=== PATIENT | male | born 1950 | race Caucasian/White ===

== ENCOUNTER → 2017-02-10 | Outpatient (CLI) | payer MEDICARE ==
[2017-02-10 10:13] LABS: MEAN CORPUSCULAR HEMOGLOBIN 32.3 pg (27.0-33.0); MEAN CORPUSCULAR HGB CONC 35.6 g/dl (32.0-36.5); MEAN CORPUSCULAR VOLUME 90.6 fl (80.0-96.0); RED CELL DISTRIBUTION WIDTH 13.1 % (11.5-14.5); WHITE BLOOD COUNT 5.2 K/mm3 (4.0-10.0)
--- NOTE | 2017-02-10 10:30 | REP ---
Chest x-ray: Two views. History: Hypertension. Comparison chest x-ray: August 06, 2015. Findings: The lungs are symmetrically aerated and free of infiltrate. Pleural angles are sharp. Heart size is normal. The patient is status post prior median sternotomy. There are degenerative changes in the thoracic spine and aorta. Right paratracheal soft tissues are unchanged from the comparison study. Impression: Status post prior median sternotomy. No acute disease. Signed by Carlos Ly MD 02/10/2017 12:24 P
[2017-02-10 10:41] LABS: ALBUMIN 3.7 GM/DL (3.2-5.2); ALBUMIN/GLOBULIN RATIO 1.03 (1.00-1.93); ALKALINE PHOSPHATASE 104 U/L (45-117); ALT/SGPT 41 U/L (12-78); ANION GAP 7 MEQ/L (8-16); AST/SGOT 20 U/L (15-37); BILIRUBIN,TOTAL 0.7 MG/DL (0.2-1.0); BLOOD UREA NITROGEN 15 MG/DL (7-18); CALCIUM LEVEL 8.7 MG/DL (8.8-10.2); CARBON DIOXIDE LEVEL 25 MEQ/L (21-32); CHLORIDE LEVEL 106 MEQ/L (98-107); CHOLESTEROL LEVEL 127 MG/DL (<200); GLOMERULAR FILTRATION RATE > 60.0 (>49); GLUCOSE, FASTING 102 MG/DL (80-110); POTASSIUM SERUM 4.3 MEQ/L (3.5-5.1); SODIUM LEVEL 138 MEQ/L (136-145); TOTAL PROTEIN 7.3 GM/DL (6.4-8.2); TRIGLYCERIDES LEVEL 78 MG/DL (<150)
== END ==
LOC: M LAB 09:22
PROVIDERS: ATTEND Family Medicine
DX: I10 Essential (primary) hypertension (principal); R53.83 Other fatigue; N40.0 Benign prostatic hyperplasia without lower urinary tract symptoms; Z79.899 Other long term (current) drug therapy

== ENCOUNTER → 2020-04-22 | Outpatient (CLI) | payer MEDICARE ==
[2020-04-22 09:13] LABS: HEMATOCRIT 49.5 % (42.0-52.0); HEMOGLOBIN 16.6 g/dl (13.5-17.5); MEAN CORPUSCULAR HGB CONC 33.5 g/dl (32.0-36.5); MEAN CORPUSCULAR VOLUME 89.4 fl (80.0-96.0); PLATELET COUNT, AUTOMATED 301 10^3/uL (150-450); RED BLOOD COUNT 5.54 10^6/uL (4.30-6.10); WHITE BLOOD COUNT 6.3 10^3/uL (4.0-10.0)
[2020-04-22 09:48] LABS: ALBUMIN 3.3 GM/DL (3.2-5.2); ALT/SGPT 30 U/L (12-78); BILIRUBIN,TOTAL 0.6 MG/DL (0.2-1.0); BLOOD UREA NITROGEN 14 MG/DL (7-18); CARBON DIOXIDE LEVEL 28 MEQ/L (21-32); CHLORIDE LEVEL 107 MEQ/L (98-107); CHOLESTEROL LEVEL 135 MG/DL (<200); CHOLESTEROL RISK RATIO 3.375 (<5); CREATININE FOR GFR 1.09 MG/DL (0.70-1.30); GLOMERULAR FILTRATION RATE > 60.0 (>42); GLUCOSE, FASTING 110 MG/DL (70-100); HDL CHOLESTEROL 40 MG/DL (>40); LDL CHOLESTEROL 66 MG/DL (<100); NON-HDL-C 95 MG/DL; POTASSIUM SERUM 4.4 MEQ/L (3.5-5.1); SODIUM LEVEL 140 MEQ/L (136-145); TOTAL PROTEIN 7.4 GM/DL (6.4-8.2); TRIGLYCERIDES LEVEL 146 MG/DL (<150)
[2020-04-22 09:56] LABS: HEMOGLOBIN A1c 5.8 %
[2020-04-22 12:39] LABS: TESTOSTERONE 564 NG/DL (241-827)
--- NOTE | 2020-04-26 11:00 | ECGEPIP ---
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
--- NOTE | 2020-04-28 11:24 | REP ---
CHEST X-RAY: 2-VIEWS HISTORY: Hypertension, fatigue, hypothyroidism. COMPARISON: Chest x-ray 02/10/2017. FINDINGS: The lungs are symmetrically aerated and free of infiltrate. The patient is status post prior median sternotomy with multiple mediastinal clips. The heart is not felt to be enlarged. Cardiothoracic ratio is 42.8%. The lungs are somewhat hyperinflated. There are degenerative changes in the thoracic spine and in the thoracic aorta as before. There is linear fibrosis in the left perihilar region unchanged. No new infiltrate is seen. Clothing or necklace artifact is seen across the soft tissues of the neck bilaterally. IMPRESSION: Prior median sternotomy. Hyperinflation. Otherwise no acute disease. MTDD
== END ==
LOC: M LAB 08:22
PROVIDERS: ATTEND Family Medicine
DX: I10 Essential (primary) hypertension (principal); R53.83 Other fatigue; E03.9 Hypothyroidism, unspecified; J84.10 Pulmonary fibrosis, unspecified

== ENCOUNTER → 2020-09-30 | Outpatient (CLI) | payer MEDICARE ==
[2020-09-30 10:32] LABS: HEMATOCRIT 48.3 % (42.0-52.0); HEMOGLOBIN 15.8 g/dl (13.5-17.5); MEAN CORPUSCULAR HEMOGLOBIN 30.2 pg (27.0-33.0); MEAN CORPUSCULAR HGB CONC 32.7 g/dl (32.0-36.5); MEAN CORPUSCULAR VOLUME 92.4 fl (80.0-96.0); PLATELET COUNT, AUTOMATED 301 10^3/uL (150-450); RED BLOOD COUNT 5.23 10^6/uL (4.30-6.10); WHITE BLOOD COUNT 6.1 10^3/uL (4.0-10.0)
[2020-09-30 11:56] LABS: ALBUMIN 3.5 GM/DL (3.2-5.2); BILIRUBIN,TOTAL 0.6 MG/DL (0.2-1.0); CALCIUM LEVEL 9.3 MG/DL (8.8-10.2); CHOLESTEROL RISK RATIO 3.333 (<5); CREATININE FOR GFR 1.26 MG/DL (0.70-1.30); GLOMERULAR FILTRATION RATE 59.9 (>42); POTASSIUM SERUM 4.2 MEQ/L (3.5-5.1); PROSTATIC SPECIFIC AG MONITOR 4.59 NG/ML (< 4.00); THYROID STIMULATING HORMONE 2.61 uIU/ML (0.358-3.740); TOTAL PROTEIN 7.5 GM/DL (6.4-8.2)
== END ==
LOC: M LAB 09:15
PROVIDERS: ATTEND Family Medicine
DX: I10 Essential (primary) hypertension (principal); R53.83 Other fatigue; E03.9 Hypothyroidism, unspecified

== ENCOUNTER → 2021-06-06 | Outpatient (CLI) | payer MEDICARE ==
[2021-06-06 12:17] LABS: HEMOGLOBIN 15.8 g/dl (13.5-17.5); MEAN CORPUSCULAR HGB CONC 33.6 g/dl (32.0-36.5); MEAN CORPUSCULAR VOLUME 92.2 fl (80.0-96.0); PLATELET COUNT, AUTOMATED 300 10^3/uL (150-450)
[2021-06-06 12:35] LABS: HEMOGLOBIN A1c 5.7 %
[2021-06-06 12:52] LABS: ALBUMIN 3.2 GM/DL (3.2-5.2); ALT/SGPT 27 U/L (12-78); BILIRUBIN,TOTAL 0.7 MG/DL (0.2-1.0); BLOOD UREA NITROGEN 12 MG/DL (7-18); CALCIUM LEVEL 8.8 MG/DL (8.8-10.2); CARBON DIOXIDE LEVEL 28 MEQ/L (21-32); CHLORIDE LEVEL 103 MEQ/L (98-107); CHOLESTEROL LEVEL 136 MG/DL (<200); CHOLESTEROL RISK RATIO 3.162 (<5); CREATININE FOR GFR 1.11 MG/DL (0.70-1.30); GLOMERULAR FILTRATION RATE > 60.0 (>42); GLUCOSE, FASTING 105 MG/DL (70-100); HDL CHOLESTEROL 43 MG/DL (>40); LDL CHOLESTEROL 62 MG/DL (<100); NON-HDL-C 93 MG/DL; POTASSIUM SERUM 4.8 MEQ/L (3.5-5.1); PROSTATIC SPECIFIC AG MONITOR 5.96 NG/ML (< 4.00); SODIUM LEVEL 136 MEQ/L (136-145); TOTAL PROTEIN 7.4 GM/DL (6.4-8.2); TRIGLYCERIDES LEVEL 155 MG/DL (<150)
[2021-06-07 10:24] LABS: TESTOSTERONE 577 NG/DL (241-827)
== END ==
LOC: M LAB 11:49
PROVIDERS: ATTEND Family Medicine
DX: I10 Essential (primary) hypertension (principal); R53.83 Other fatigue; R97.21 Rising PSA following treatment for malignant neoplasm of prostate

== ENCOUNTER → 2021-09-07 | Outpatient (CLI) | payer MEDICARE | LOC: M RAD 15:10 | PROVIDERS: ATTEND Family Medicine | DX: R05.9 Cough, unspecified (principal) ==

== ENCOUNTER → 2021-09-24 | Outpatient (CLI) | payer MEDICARE | LOC: M RAD 14:06 | PROVIDERS: ATTEND Family Medicine | DX: J18.9 Pneumonia, unspecified organism (principal) ==

== ENCOUNTER → 2021-12-26 | Outpatient (CLI) | payer MEDICARE ==
[2021-12-26 14:48] LABS: HEMATOCRIT 45.2 % (42.0-52.0); HEMOGLOBIN 15.4 g/dl (13.5-17.5); MEAN CORPUSCULAR HEMOGLOBIN 31.6 pg (27.0-33.0); MEAN CORPUSCULAR HGB CONC 34.1 g/dl (32.0-36.5); MEAN CORPUSCULAR VOLUME 92.6 fl (80.0-96.0); PLATELET COUNT, AUTOMATED 280 10^3/uL (150-450); RED BLOOD COUNT 4.88 10^6/uL (4.30-6.10); WHITE BLOOD COUNT 5.4 10^3/uL (4.0-10.0)
[2021-12-26 15:05] LABS: HEMOGLOBIN A1c 5.9 %
[2021-12-26 15:23] LABS: ALBUMIN 3.2 GM/DL (3.2-5.2); ALT/SGPT 26 U/L (12-78); BILIRUBIN,TOTAL 0.7 MG/DL (0.2-1.0); BLOOD UREA NITROGEN 14 MG/DL (7-18); CALCIUM LEVEL 9.4 MG/DL (8.8-10.2); CARBON DIOXIDE LEVEL 26 MEQ/L (21-32); CHLORIDE LEVEL 106 MEQ/L (98-107); CHOLESTEROL LEVEL 144 MG/DL (<200); CHOLESTEROL RISK RATIO 2.938 (<5); CREATININE FOR GFR 1.17 MG/DL (0.70-1.30); GLOMERULAR FILTRATION RATE > 60.0 (>42); GLUCOSE, FASTING 111 MG/DL (70-100); HDL CHOLESTEROL 49 MG/DL (>40); LDL CHOLESTEROL 68 MG/DL (<100); NON-HDL-C 95 MG/DL; POTASSIUM SERUM 4.6 MEQ/L (3.5-5.1); PROSTATIC SPECIFIC AG MONITOR 6.84 NG/ML (< 4.00); SODIUM LEVEL 140 MEQ/L (136-145); TOTAL PROTEIN 7.5 GM/DL (6.4-8.2); TRIGLYCERIDES LEVEL 136 MG/DL (<150)
[2021-12-27 11:12] LABS: TESTOSTERONE 557 NG/DL (241-827)
== END ==
LOC: M LAB 14:17
PROVIDERS: ATTEND Family Medicine
DX: I10 Essential (primary) hypertension (principal); R97.20 Elevated prostate specific antigen [PSA]

== ENCOUNTER → 2022-02-01 | Outpatient (REF) | payer MEDICARE | LOC: M SMT 12:58 | PROVIDERS: ATTEND Urology | DX: C61 Malignant neoplasm of prostate (principal) ==

== ENCOUNTER → 2022-02-23 | Outpatient (CLI) | payer MEDICARE ==
[2022-02-23 12:59] LABS: BLOOD UREA NITROGEN 12 MG/DL (7-18); CALCIUM LEVEL 9.5 MG/DL (8.8-10.2); CARBON DIOXIDE LEVEL 29 MEQ/L (21-32); CHLORIDE LEVEL 100 MEQ/L (98-107); CREATININE FOR GFR 1.19 MG/DL (0.70-1.30); GLOMERULAR FILTRATION RATE > 60.0 (>42); GLUCOSE, FASTING 118 MG/DL (70-100); POTASSIUM SERUM 3.8 MEQ/L (3.5-5.1); SODIUM LEVEL 136 MEQ/L (136-145)
== END ==
LOC: M LAB 11:08
PROVIDERS: ATTEND Urology
DX: C61 Malignant neoplasm of prostate (principal)

== ENCOUNTER → 2022-03-22 | Outpatient (CLI) | payer MEDICARE ==
[~2022-03-22] MED LIST: AMLO1TAB24 PO; ASPI81CH33 PO; ATOR1TAB21 PO; FURO40TA2 PO; METO1TAB33 PO; PARO20TA3 PO; RAMI1CAP26 PO; RANO500T2 PO
== END ==
LOC: M ONCR 13:58
PROVIDERS: ATTEND General Practice
DX: C61 Malignant neoplasm of prostate (principal); I10 Essential (primary) hypertension; I25.2 Old myocardial infarction; Z79.811 Long term (current) use of aromatase inhibitors; Z79.818 Long term (current) use of other agents affecting estrogen receptors and estrogen levels; Z79.899 Other long term (current) drug therapy; Z80.1 Family history of malignant neoplasm of trachea, bronchus and lung

== ENCOUNTER → 2022-04-22 | Outpatient (RCR) | payer MEDICARE | LOC: M ONCR 04-01 07:08 | PROVIDERS: ATTEND General Practice | DX: C61 Malignant neoplasm of prostate (principal) ==

== ENCOUNTER 2022-05-13 12:43 | Inpatient (IN) | payer MEDICARE ==
[~2022-05-13] VITALS: Ht 175.3 cm; Wt 133.3 kg
[~2022-05-13 12:43] MED LIST changes: +ONDA-83 PO
[2022-05-13] MEDS: COMBIVENT RESPIMAT 100-20MCG INHALER 4GM INH SCH ×2 (13:17→13:18)
[2022-05-13 13:33] LABS: VENOUS HCO3 25.5 MEQ/L (23.0-27.0); VENOUS O2 SATURATION 87.5 % (60.0-80.0); VENOUS PARTIAL PRESSURE CO2 44.8 mmHg (38.0-50.0); VENOUS PARTIAL PRESSURE O2 53.6 mmHg (30.0-50.0); VENOUS PH 7.373 UNITS (7.330-7.430); VENOUS STANDARD HCO3 24.3 MEQ/L; VENOUS TOTAL CO2 26.9 MEQ/L (24.0-28.0)
[2022-05-13 13:37] LABS: BASO % 0.4 % (0.0-1.0); EOS # 0.1 10^3/uL (0.0-0.5); EOS % 3.1 % (0.0-3.0); HEMOGLOBIN 11.9 g/dl (13.5-17.5); LYMPH # 0.3 10^3/uL (1.5-5.0); LYMPH % 5.4 % (24.0-44.0); MEAN CORPUSCULAR HEMOGLOBIN 31.6 pg (27.0-33.0); MEAN CORPUSCULAR VOLUME 93.1 fl (80.0-96.0); MONO # 1.3 10^3/uL (0.0-0.8); MONO % 27.5 % (2.0-8.0); NEUTROPHILS # 2.9 10^3/uL (1.5-8.5); NEUTROPHILS % 62.9 % (36.0-66.0); PLATELET COUNT, AUTOMATED 227 10^3/uL (150-450); RED BLOOD COUNT 3.76 10^6/uL (4.30-6.10); WHITE BLOOD COUNT 4.6 10^3/uL (4.0-10.0)
[2022-05-13 13:48] LABS: INR 1.05; PROTHROMBIN TIME 13.9 SECONDS (12.5-14.5)
[2022-05-13 14:37] LABS: ALBUMIN 2.9 GM/DL (3.2-5.2); ALT/SGPT 20 U/L (12-78); BILIRUBIN,DIRECT 0.3 MG/DL (0.0-0.2); BILIRUBIN,TOTAL 0.7 MG/DL (0.2-1.0); BLOOD UREA NITROGEN 16 MG/DL (7-18); CALCIUM LEVEL 8.8 MG/DL (8.8-10.2); CARBON DIOXIDE LEVEL 25 MEQ/L (21-32); CHLORIDE LEVEL 104 MEQ/L (98-107); CREATININE FOR GFR 1.22 MG/DL (0.70-1.30); GLOMERULAR FILTRATION RATE > 60.0 (>42); GLUCOSE, FASTING 135 MG/DL (70-100); POTASSIUM SERUM 3.7 MEQ/L (3.5-5.1); SODIUM LEVEL 137 MEQ/L (136-145); TOTAL PROTEIN 7.1 GM/DL (6.4-8.2)
[2022-05-13] MEDS ORDERED: ISOVUE-370 76% 100ML VIAL As Ordered ONE ×2 (14:47→15:01)
[2022-05-13] MEDS ORDERED: IPRATROPIUM 0.5MG/ALBUTEROL 2.5MG INH SOL UD 3ML (DUONEB) NEB PRN (16:30)
[2022-05-13 17:39] LABS: NT-PRO BNP 1356 PG/ML (<125)
[2022-05-13] MEDS ORDERED: ONDA-83 PO (17:57)
[2022-05-13] MEDS ORDERED: ACET1TAB55 PO (17:57)
[2022-05-13] MEDS ORDERED: AMLO1TAB25 PO (17:57)
[2022-05-13] MEDS ORDERED: VITMTA PO (17:57)
[2022-05-13] MEDS ORDERED: HOME MED LIST COMPLETE! XX SCH ×2 (18:00→18:05)
[2022-05-13] MEDS: methylPREDNISolone 40MG 1ML VIAL IV SCH (18:05)
[2022-05-13] MEDS: FUROSEMIDE 100MG/10ML VIAL (J1940) IV SCH (18:05)
[2022-05-13] MEDS: IPRATROPIUM 0.5MG/ALBUTEROL 2.5MG INH SOL UD 3ML (DUONEB) NEB SCH (20:52)
[2022-05-13] MEDS: DOXYCYCLINE HYCLATE 100 MG in D5W MINI-BAG PLUS 100 ML IV SCH (22:41)
[2022-05-13] MEDS: ASPIRIN 81MG ENTERIC TABLET PO SCH (22:42)
[2022-05-13] MEDS: ATORVASTATIN 20 MG TAB PO SCH (22:43)
[2022-05-13] MEDS: METOPROLOL SUCC (TopROL XL) 100MG *XL* TAB PO SCH (22:43)
[2022-05-13] MEDS: RANOLAZINE 500 MG ER TAB PO SCH (22:44)
[2022-05-13] MEDS: amLODIPine 5 MG TAB PO SCH (22:44)
[2022-05-13] MEDS: ramipriL 5 MG CAP PO SCH (22:45)
[2022-05-14] MEDS: IPRATROPIUM 0.5MG/ALBUTEROL 2.5MG INH SOL UD 3ML (DUONEB) NEB SCH ×4 (02:26→20:13)
[2022-05-14] MEDS: methylPREDNISolone 40MG 1ML VIAL IV SCH ×2 (06:00→17:31)
[2022-05-14 08:11] LABS: HEMATOCRIT 33.9 % (42.0-52.0); HEMOGLOBIN 11.6 g/dl (13.5-17.5); MEAN CORPUSCULAR HEMOGLOBIN 31.9 pg (27.0-33.0); MEAN CORPUSCULAR HGB CONC 34.2 g/dl (32.0-36.5); MEAN CORPUSCULAR VOLUME 93.1 fl (80.0-96.0); PLATELET COUNT, AUTOMATED 252 10^3/uL (150-450); RED BLOOD COUNT 3.64 10^6/uL (4.30-6.10); WHITE BLOOD COUNT 5.1 10^3/uL (4.0-10.0)
[2022-05-14 08:45] LABS: BLOOD UREA NITROGEN 18 MG/DL (7-18); CALCIUM LEVEL 8.6 MG/DL (8.8-10.2); CARBON DIOXIDE LEVEL 27 MEQ/L (21-32); CHLORIDE LEVEL 104 MEQ/L (98-107); CREATININE FOR GFR 1.23 MG/DL (0.70-1.30); GLOMERULAR FILTRATION RATE > 60.0 (>42); GLUCOSE, FASTING 179 MG/DL (70-100); NT-PRO BNP 2074 PG/ML (<125); POTASSIUM SERUM 3.8 MEQ/L (3.5-5.1); SODIUM LEVEL 138 MEQ/L (136-145)
[2022-05-14] MEDS: DOXYCYCLINE HYCLATE 100 MG in D5W MINI-BAG PLUS 100 ML IV SCH ×2 (10:15→20:35)
[2022-05-14] MEDS: ENOXAPARIN 40MG/0.4ML SYRINGE (J1650 PER 10MG) SC SCH (10:15)
[2022-05-14] MEDS: POTASSIUM CHLORIDE 10MEQ SR TABLET PO SCH (10:15)
[2022-05-14] MEDS: RANOLAZINE 500 MG ER TAB PO SCH ×2 (10:16→20:42)
[2022-05-14] MEDS: FUROSEMIDE 100MG/10ML VIAL (J1940) IV SCH ×2 (10:16→17:31)
[2022-05-14] MEDS: PARoxetine 20MG TABLET PO SCH (10:16)
[2022-05-14 12:00] VITALS: BP 130/61
[2022-05-14 14:28] VITALS: BP 130/65
[2022-05-14 16:00] VITALS: BP 135/63
[2022-05-14 19:50] VITALS: BP 135/67
[2022-05-14] MEDS: ramipriL 5 MG CAP PO SCH (20:41)
[2022-05-14] MEDS: amLODIPine 5 MG TAB PO SCH (20:42)
[2022-05-14] MEDS: ASPIRIN 81MG ENTERIC TABLET PO SCH (20:42)
[2022-05-14] MEDS: ATORVASTATIN 20 MG TAB PO SCH (20:42)
[2022-05-14] MEDS: METOPROLOL SUCC (TopROL XL) 100MG *XL* TAB PO SCH (20:43)
[2022-05-15] VITALS (7 sets, daily range): BP systolic 105–135; BP diastolic 58–87; PULSE 100
[2022-05-15 01:05] LABS: CK-MB VALUE MASS 1.1 NG/ML (<3.6); MB/CK RELATIVE INDEX 0.59 (< OR =4)
[2022-05-15] MEDS: IPRATROPIUM 0.5MG/ALBUTEROL 2.5MG INH SOL UD 3ML (DUONEB) NEB SCH ×4 (02:17→19:55)
[2022-05-15] MEDS ORDERED: CEPACOL LOZENGE PO PRN (02:30)
[2022-05-15] MEDS: methylPREDNISolone 40MG 1ML VIAL IV SCH ×2 (06:01→17:53)
[2022-05-15 06:12] LABS: MEAN CORPUSCULAR HEMOGLOBIN 31.6 pg (27.0-33.0); MEAN CORPUSCULAR HGB CONC 33.3 g/dl (32.0-36.5); MEAN CORPUSCULAR VOLUME 94.8 fl (80.0-96.0); PLATELET COUNT, AUTOMATED 274 10^3/uL (150-450); RED BLOOD COUNT 3.48 10^6/uL (4.30-6.10); WHITE BLOOD COUNT 8.4 10^3/uL (4.0-10.0)
[2022-05-15 06:41] LABS: CALCIUM LEVEL 8.8 MG/DL (8.8-10.2); CREATININE FOR GFR 1.44 MG/DL (0.70-1.30); GLOMERULAR FILTRATION RATE 51.1 (>42); POTASSIUM SERUM 3.7 MEQ/L (3.5-5.1)
[2022-05-15] MEDS: FUROSEMIDE 100MG/10ML VIAL (J1940) IV SCH ×2 (08:17→17:06)
[2022-05-15] MEDS: POTASSIUM CHLORIDE 10MEQ SR TABLET PO SCH (08:18)
[2022-05-15] MEDS: RANOLAZINE 500 MG ER TAB PO SCH ×2 (08:18→20:22)
[2022-05-15] MEDS: PARoxetine 20MG TABLET PO SCH (08:18)
[2022-05-15] MEDS: ENOXAPARIN 40MG/0.4ML SYRINGE (J1650 PER 10MG) SC SCH (08:18)
[2022-05-15] MEDS: DOXYCYCLINE HYCLATE 100 MG in D5W MINI-BAG PLUS 100 ML IV SCH ×2 (08:19→20:16)
[2022-05-15 12:21] LABS: INR 1.06
[2022-05-15 12:22] LABS: PARTIAL THROMBOPLASTIN TIME 26.1 SECONDS (24.8-34.2)
[2022-05-15] MEDS: ASPIRIN 81MG ENTERIC TABLET PO SCH (20:16)
[2022-05-15] MEDS: APIXABAN 5 MG TAB (ELIQUIS) PO SCH (20:16)
[2022-05-15] MEDS: ATORVASTATIN 20 MG TAB PO SCH (20:17)
[2022-05-15] MEDS: METOPROLOL SUCC (TopROL XL) 100MG *XL* TAB PO SCH (20:21)
[2022-05-15] MEDS: ramipriL 5 MG CAP PO SCH (20:22)
[2022-05-15] MEDS: amLODIPine 5 MG TAB PO SCH (20:22)
[2022-05-16] MEDS: IPRATROPIUM 0.5MG/ALBUTEROL 2.5MG INH SOL UD 3ML (DUONEB) NEB SCH ×4 (01:29→19:36)
[2022-05-16 04:18] VITALS: BP 143/82
[2022-05-16] MEDS: methylPREDNISolone 40MG 1ML VIAL IV SCH ×2 (05:15→17:09)
[2022-05-16 06:31] LABS: HEMATOCRIT 35.7 % (42.0-52.0); HEMOGLOBIN 11.8 g/dl (13.5-17.5); MEAN CORPUSCULAR HEMOGLOBIN 32.2 pg (27.0-33.0); MEAN CORPUSCULAR HGB CONC 33.1 g/dl (32.0-36.5); MEAN CORPUSCULAR VOLUME 97.5 fl (80.0-96.0); PLATELET COUNT, AUTOMATED 271 10^3/uL (150-450); RED BLOOD COUNT 3.66 10^6/uL (4.30-6.10); WHITE BLOOD COUNT 8.1 10^3/uL (4.0-10.0)
[2022-05-16 07:15] LABS: CALCIUM LEVEL 8.9 MG/DL (8.8-10.2); CREATININE FOR GFR 1.33 MG/DL (0.70-1.30); POTASSIUM SERUM 4.4 MEQ/L (3.5-5.1)
[2022-05-16 07:35] VITALS: BP 140/72
[2022-05-16] MEDS: DOXYCYCLINE HYCLATE 100 MG in D5W MINI-BAG PLUS 100 ML IV SCH (07:50)
[2022-05-16] MEDS: POTASSIUM CHLORIDE 10MEQ SR TABLET PO SCH (09:24)
[2022-05-16] MEDS: APIXABAN 5 MG TAB (ELIQUIS) PO SCH ×2 (09:24→20:51)
[2022-05-16] MEDS: RANOLAZINE 500 MG ER TAB PO SCH ×2 (09:24→20:51)
[2022-05-16] MEDS: PARoxetine 20MG TABLET PO SCH (09:24)
[2022-05-16] MEDS: FUROSEMIDE 100MG/10ML VIAL (J1940) IV SCH ×2 (09:25→17:09)
[2022-05-16 16:05] VITALS: BP 131/81
[2022-05-16] MEDS: metOLazone 2.5 MG TAB PO SCH (16:18)
[2022-05-16] MEDS ORDERED: ELIQ5TAB PO (17:33)
[2022-05-16 19:57] VITALS: BP 128/60
[2022-05-16 20:51] VITALS: BP 128/60
[2022-05-16] MEDS: ASPIRIN 81MG ENTERIC TABLET PO SCH (20:51)
[2022-05-16] MEDS: ramipriL 5 MG CAP PO SCH (20:51)
[2022-05-16] MEDS: ATORVASTATIN 20 MG TAB PO SCH (20:51)
[2022-05-16] MEDS: DOXYCYCLINE HYCLATE 100MG TABLET PO SCH (20:51)
[2022-05-16] MEDS: METOPROLOL SUCC (TopROL XL) 100MG *XL* TAB PO SCH (20:51)
[2022-05-16] MEDS: amLODIPine 5 MG TAB PO SCH (20:51)
[2022-05-17 00:16] VITALS: BP 136/68
[2022-05-17] MEDS: IPRATROPIUM 0.5MG/ALBUTEROL 2.5MG INH SOL UD 3ML (DUONEB) NEB SCH ×2 (02:00→07:40)
[2022-05-17 03:59] VITALS: BP 124/70
[2022-05-17] MEDS: methylPREDNISolone 40MG 1ML VIAL IV SCH (05:38)
[2022-05-17 05:56] LABS: HEMATOCRIT 36.6 % (42.0-52.0); HEMOGLOBIN 12.2 g/dl (13.5-17.5); MEAN CORPUSCULAR HEMOGLOBIN 31.4 pg (27.0-33.0); MEAN CORPUSCULAR HGB CONC 33.3 g/dl (32.0-36.5); MEAN CORPUSCULAR VOLUME 94.1 fl (80.0-96.0); PLATELET COUNT, AUTOMATED 305 10^3/uL (150-450); RED BLOOD COUNT 3.89 10^6/uL (4.30-6.10); WHITE BLOOD COUNT 8.1 10^3/uL (4.0-10.0)
[2022-05-17 06:25] LABS: CREATININE FOR GFR 1.31 MG/DL (0.70-1.30); GLOMERULAR FILTRATION RATE 56.9 (>42); POTASSIUM SERUM 4.3 MEQ/L (3.5-5.1)
[2022-05-17 07:37] VITALS: BP 132/75
[2022-05-17] MEDS: metOLazone 2.5 MG TAB PO SCH (08:16)
[2022-05-17] MEDS: RANOLAZINE 500 MG ER TAB PO SCH (08:16)
[2022-05-17] MEDS: PARoxetine 20MG TABLET PO SCH (08:16)
[2022-05-17] MEDS: FUROSEMIDE 100MG/10ML VIAL (J1940) IV SCH ×2 (08:16→15:04)
[2022-05-17] MEDS: APIXABAN 5 MG TAB (ELIQUIS) PO SCH (08:17)
[2022-05-17] MEDS: POTASSIUM CHLORIDE 10MEQ SR TABLET PO SCH (08:17)
[2022-05-17] MEDS: DOXYCYCLINE HYCLATE 100MG TABLET PO SCH (08:17)
[2022-05-17 11:23] VITALS: BP 135/84
[2022-05-17] MEDS ORDERED: METO25TA PO (15:37)
[2022-05-17] MEDS ORDERED: POTA-136 PO (15:37)
[2022-05-17] MEDS ORDERED: FURO40TA2 PO (15:37)
[2022-05-17] MEDS ORDERED: DOXY100T PO (15:37)
[2022-05-17] MEDS ORDERED: AMLO1TAB24 PO (15:37)
[2022-05-17] MEDS ORDERED: PRED20TA PO (15:43)
[2022-05-17 15:56] VITALS: BP 131/71
== END 2022-05-17 17:43 | disposition home health service (06) | DRG 291 ==
LOC: M ED 12:43 → M ED INP 16:30 → M PCU 05-14 14:23
PROVIDERS: ADMIT Family Medicine; ATTEND Family Medicine
DX: I13.0 Hypertensive heart and chronic kidney disease with heart failure and stage 1 through stage 4 chronic kidney disease, or unspecified chronic kidney disease (principal); I50.31 Acute diastolic (congestive) heart failure; J44.1 Chronic obstructive pulmonary disease with (acute) exacerbation; I48.11 Longstanding persistent atrial fibrillation; E78.5 Hyperlipidemia, unspecified; G47.30 Sleep apnea, unspecified; C61 Malignant neoplasm of prostate; Z87.891 Personal history of nicotine dependence; Z95.1 Presence of aortocoronary bypass graft; I25.10 Atherosclerotic heart disease of native coronary artery without angina pectoris; R73.03 Prediabetes; I27.81 Cor pulmonale (chronic); N18.31 Chronic kidney disease, stage 3a; Z79.82 Long term (current) use of aspirin; Z79.01 Long term (current) use of anticoagulants; Z79.899 Other long term (current) drug therapy

== ENCOUNTER 2022-05-23 11:02 | Outpatient (RCR) | payer MEDICARE ==
[~2022-05-23 11:02] MED LIST changes: +ACET1TAB55 PO; +AMLO1TAB25 PO; +DOXY100T PO; +ELIQ5TAB PO; +METO25TA PO; +POTA-136 PO; +PRED20TA PO; +VITMTA PO
== END 2022-05-23 23:59 | disposition home or self-care (01) ==
LOC: M ONCR 11:02
PROVIDERS: ATTEND General Practice
DX: C61 Malignant neoplasm of prostate (principal)

== ENCOUNTER 2022-05-23 12:01 | Emergency (ER) | payer MEDICARE ==
[~2022-05-23] VITALS: Ht 172.7 cm; Wt 127.3 kg
[2022-05-23 12:48] LABS: BASO % 0.2 % (0.0-1.0); EOS # 0.1 10^3/uL (0.0-0.5); EOS % 0.5 % (0.0-3.0); HEMATOCRIT 42.5 % (42.0-52.0); HEMOGLOBIN 14.7 g/dl (13.5-17.5); LYMPH # 0.2 10^3/uL (1.5-5.0); MEAN CORPUSCULAR HEMOGLOBIN 31.7 pg (27.0-33.0); MEAN CORPUSCULAR HGB CONC 34.6 g/dl (32.0-36.5); MEAN CORPUSCULAR VOLUME 91.8 fl (80.0-96.0); MONO # 1.4 10^3/uL (0.0-0.8); MONO % 12.5 % (2.0-8.0); NEUTROPHILS # 9.6 10^3/uL (1.5-8.5); NEUTROPHILS % 83.7 % (36.0-66.0); PLATELET COUNT, AUTOMATED 298 10^3/uL (150-450); RED BLOOD COUNT 4.63 10^6/uL (4.30-6.10); WHITE BLOOD COUNT 11.5 10^3/uL (4.0-10.0)
[2022-05-23 13:24] LABS: CALCIUM LEVEL 9.1 MG/DL (8.8-10.2); CREATININE FOR GFR 2.02 MG/DL (0.70-1.30); GLOMERULAR FILTRATION RATE 34.5 (>42)
[2022-05-23] MEDS ORDERED: NS 500 ML IV ONE (14:20)
[2022-05-23 16:01] VITALS: BP 124/64
== END 2022-05-23 17:09 | disposition home or self-care (01) ==
LOC: M ED 12:01
DX: N17.9 Acute kidney failure, unspecified (principal); H53.8 Other visual disturbances; R53.1 Weakness; T50.905A Adverse effect of unspecified drugs, medicaments and biological substances, initial encounter; C61 Malignant neoplasm of prostate; I48.91 Unspecified atrial fibrillation; J44.9 Chronic obstructive pulmonary disease, unspecified; I11.9 Hypertensive heart disease without heart failure; I25.10 Atherosclerotic heart disease of native coronary artery without angina pectoris; Z87.891 Personal history of nicotine dependence; Z95.1 Presence of aortocoronary bypass graft; I67.82 Cerebral ischemia; G31.1 Senile degeneration of brain, not elsewhere classified; Z79.899 Other long term (current) drug therapy; Z79.01 Long term (current) use of anticoagulants; Z79.82 Long term (current) use of aspirin

== ENCOUNTER 2022-05-24 11:10 | Outpatient (RCR) | payer MEDICARE | END 2022-06-22 | LOC: M ONCR 11:10 | PROVIDERS: ATTEND General Practice | DX: C61 Malignant neoplasm of prostate (principal) ==

== ENCOUNTER → 2022-05-25 | Outpatient (CLI) | payer MEDICARE ==
[2022-05-25 15:41] LABS: CREATININE FOR GFR 1.42 MG/DL (0.70-1.30); GLOMERULAR FILTRATION RATE 51.9 (>42); POTASSIUM SERUM 3.7 MEQ/L (3.5-5.1)
== END ==
LOC: M LAB 13:53
PROVIDERS: ATTEND Internal Medicine
DX: N17.9 Acute kidney failure, unspecified (principal)

== ENCOUNTER → 2022-07-20 | Outpatient (CLI) | payer MEDICARE ==
[2022-07-20 08:56] LABS: PROSTATIC SPECIFIC AG MONITOR 0.1 NG/ML (< 4.00)
== END ==
LOC: M LAB 08:07
PROVIDERS: ATTEND General Practice
DX: C61 Malignant neoplasm of prostate (principal)

== ENCOUNTER → 2022-07-27 | Outpatient (CLI) | payer MEDICARE | LOC: M ONCR 10:46 | PROVIDERS: ATTEND General Practice | DX: C61 Malignant neoplasm of prostate (principal); Z79.01 Long term (current) use of anticoagulants; Z79.82 Long term (current) use of aspirin; Z79.818 Long term (current) use of other agents affecting estrogen receptors and estrogen levels; Z79.899 Other long term (current) drug therapy; Z92.3 Personal history of irradiation ==

== ENCOUNTER → 2022-09-30 | Outpatient (CLI) | payer MEDICARE | LOC: M RAD 13:11 | PROVIDERS: ATTEND Internal Medicine Cardiovascular Disease | DX: R06.02 Shortness of breath (principal) ==

== ENCOUNTER → 2023-01-25 | Outpatient (CLI) | payer MEDICARE | LOC: M ONCR 10:10 | PROVIDERS: ATTEND General Practice | DX: C61 Malignant neoplasm of prostate (principal); I50.33 Acute on chronic diastolic (congestive) heart failure; R09.02 Hypoxemia; R60.1 Generalized edema; Z71.2 Person consulting for explanation of examination or test findings; Z79.01 Long term (current) use of anticoagulants; Z79.82 Long term (current) use of aspirin; Z79.818 Long term (current) use of other agents affecting estrogen receptors and estrogen levels; Z79.899 Other long term (current) drug therapy; Z92.3 Personal history of irradiation ==